=== PATIENT | male | born 1990 | race Caucasian/White ===

== ENCOUNTER → 2020-05-24 12:00 | Outpatient (CLI) | payer OTHER, SELFPAY ==
[2016-07-22 18:32] VITALS: BMI 26.4
== END ==
PROVIDERS: PCP Family Medicine; Visit Provider Family Medicine
DX: R05 Cough (principal)
CPT/HCPCS: 87635; U0003

== ENCOUNTER 2021-04-15 19:47 | Emergency (ER) | payer OTHER, SELFPAY ==
[2021-04-15 19:49] VITALS: BP 120/91; PULSE 76; RESP 16; TEMP 36.3; O2SAT 98; BMI 26.4
--- NOTE | 2021-04-15 20:27 | EX.ED.UPPERE ---
HPI History of Present Illness HPI Narrative: Patient presents with left shoulder injury that occurred today. Patient states he fell down some steps today. Patient states he felt like he dislocated his shoulder. Patient states he has done this many times in the past. Patient states his pain is worse with certain movements. Patient describes his pain as cramping. Patient states it is better at rest. Patient denies any paresthesias or weakness. Patient denies any head injury or loss of consciousness. Patient denies any other injuries. Chief Complaint: Upper Extremity Injury Informant: patient Occured/Mechanism Mechanism/Context: Yes fall Onset/Context/Timing Onset: Today Context: Sudden Onset Timing: Continuous Quality of Pain: - (Cramping) Location: Left shoulder Worsened by: Certain movements Relieved by: Rest Associated Symptoms Associated Symptoms: Negative for Parasthesia, Weakness and Loss of Funtion [facility] Medical History (Updated 04/15/21 @ 20:[address] Roberto Carlos Lopes DO) ADHD Home Medications dextroamphetamine-amphetamine [Adderall] 40 mg PO DAILY 04/15/21 [History Last Taken Unknown] Allergy/AdvReac Type Severity Reaction Status Date / Time No Known Allergies Allergy Verified 04/15/21 19:48 Surgical History (Updated 04/15/21 @ 20:[address] Roberto Carlos Lopes DO) History of repair of ACL Social History (Updated 04/15/21 @ 20:[address] Roberto Carlos Lopes DO) Smoking Status: Current every day smoker tobacco type: cigarettes Smoking packs per day: 0.5 Smoking cigarettes per day: 10.0 substance use type: marijuana ROS ROS ED Constitutional Constitutional ED: Denies chills or fever(s) Eyes Eyes: Denies blurry vision or change in vision ENT ENT ED: Denies rhinorrhea or sore throat Cardiovascular Cardiovascular: Denies chest pain or palpitations Respiratory/Chest Respiratory/Chest: Denies cough or dyspnea Gastrointestinal Gastrointestinal: Denies nausea or vomiting Genitourinary Genitourinary ED: Denies dysuria or hematuria Musculoskeletal Musculoskeletal: Denies back pain or neck pain Integumentary Denies abscess or rash Neurologic Neurologic: Denies headache(s) or weakness Allergic/Immunologic Allergic/Immunologic ED: Denies mouth swelling or urticaria EXAM Physical Exam Const Vital Signs: 04/15/21 19:49 Temperature 97.3 F L Temperature Source Temporal Pulse Rate 76 Respiratory Rate 16 Blood Pressure 120/91 H Blood Pressure Mean 100 Pulse Ox 98 Oxygen Delivery Method Room Air Positive well nourished and well developed General Appearance ED: well developed HEENT Reports moist mucous membranes Neck full ROM and supple Extremity Extremity Narrative: There is tenderness over the left shoulder, worse over the posterior aspect. There is no deformity noted. Range of motion was slightly limited in all motion secondary to pain. Sensation was intact to light touch in the radial, median, ulnar, and axillary areas. Radial pulses are equal bilaterally. Strength is 5/5 in the radial, median, and ulnar areas. Neuro oriented x3, CN's II-XII intact bilaterally, moves all extremities, no focal motor deficits and no sensory deficits noted Sensorium / Orientation: alert Psych mental status grossly normal MDM MDM MDM Narrative Medical decision making narrative: I discussed with the patient getting x-rays. He does not want any x-rays at this time. Patient states he thinks he needs an MRI of his shoulder due to frequent dislocations. Patient was advised that we cannot do MRIs of the shoulder from the emergency department. Patient was instructed to follow-up with his primary care physician in 5 to 7 days. Patient was also instructed to follow-up with his orthopedist in 5 to 7 days and they may be able to order the MRI as an outpatient. Patient was instructed use Tylenol as needed for pain. Patient was instructed to use ice. Patient was instructed to return if worse in any way. Patient understood and was agreeable with the plan. All questions were answered. Discharge Plan Triage Chief Complaint: Upper Extremity Injury ED Provider: Roberto Carlos Lopes Dx/Rx/DC Orders Clinical Impression: Left shoulder pain Instructions: ED Shoulder Sprain Prescriptions: No Action dextroamphetamine-amphetamine [Adderall] 20 mg Tablet 40 mg PO DAILY RF: 0 Primary Care Provider: Zafar Truong Referrals: Zafar Truong MD [Primary Care Provider] - 5-7 Days Disposition Disposition: Home, Self Care
== END 2021-04-15 20:51 | disposition home or self-care (01) ==
PROVIDERS: Emergency Provider Emergency Medicine; PCP Family Medicine
DX: M25.512 Pain in left shoulder (principal); F17.210 Nicotine dependence, cigarettes, uncomplicated
CPT/HCPCS: 99282

== ENCOUNTER → 2021-05-12 10:31 | Outpatient (CLI) | payer OTHER, SELFPAY ==
[2021-05-12 12:36] LABS: Absolute Neutrophil Count 3.4 X10^3/uL (2.0-7.7); Basophil# 0.07 X10^3/uL; Basophil% 0.8 % (0-1); Eosinophil# 0.07 X10^3/uL; Eosinophils% 0.8 % (0-5); Hematocrit 42.8 % (40-54); Hemoglobin 13.7 g/dL (13.0-16.5); Lymphocyte % 53.9 % (19-41); Mean Corpuscular Hgb 29.7 pg (27.0-32.0); Mean Corpuscular Volume 92.8 fL (80-94); Mean Platelet Vol. 9.5 fl (6.2-12.0); Monocyte# 0.43 X10^3/uL; NRBC Flagged by Analyzer 0 % (0-5); Neutrophil # 3.35 X10^3/uL (2.7-7.7); Neutrophil % 39.3 % (47-70); POSITIVE MORPHOLOGY YES; Platelet Count 238 K/mm3 (150-450); RBC Distribution Width CV 14.1 % (11.6-14.6); RBC Distribution Width SD 48.1 fl (35.1-43.9); Red Blood Count 4.61 M/mm3 (4.6-6.2); White Blood Count 8.5 K/mm3 (4.4-11.0)
[2021-05-12 12:37] LABS: Differential Indicated SCAN CRITERIA MET
[2021-05-12 12:57] LABS: ALB/GLOB Ratio 0.9 RATIO (0.9-2.4); AST(SGOT) 86 U/L (15-37); Alanine Aminotransfer ALT/SGPT 212 U/L (16-61); Albumin, Serum 3.7 g/dL (3.2-5.0); Alkaline Phosphatase 125 U/L (45-117); Anion Gap 3 (5-15); BUN 13 mg/dL (7-18); BUN/Creat Ratio 13.8 RATIO (10-20); Calcium,Total 9.1 mg/dL (8.5-10.1); Chloride 105 mmol/L (98-107); Cholesterol 125 mg/dL (200); Creatinine, Serum 0.94 mg/dL (0.70-1.30); EST Glomerular Filtration Rate 99 mL/min (>60); Est Glom Filt Rate - Afr Amer 119 mL/min (>60); Globulin 4.1 g/dL (2.2-4.2); Glucose 103 mg/dL (74-106); High Density Lipoprotein 25 mg/dL; Potassium 4.3 mmol/L (3.5-5.1); Protein, Total 7.8 g/dL (6.4-8.2); Sodium Level 137 mmol/L (136-145); Triglycerides 179 mg/dL; Very Low Density Lipoprotein 36 mg/dL (5-40)
[2021-05-12 13:17] LABS: Differential Comment SCANNED; Reactive Lymphocyte 1+
== END ==
PROVIDERS: PCP Family Medicine; Referring Provider Family Medicine; Visit Provider Family Medicine
DX: I80.3 Phlebitis and thrombophlebitis of lower extremities, unspecified (principal); Z13.220 Encounter for screening for lipoid disorders
CPT/HCPCS: 36415; 80053; 80061; 85025

== ENCOUNTER → 2021-05-12 13:30 | Outpatient (CLI) | payer OTHER, SELFPAY ==
--- NOTE | 2021-05-12 13:34 | VDLE_ITS ---
Reason For Study: pain RIGHT GSV is normal. CFV is compressible, spontaneous, phasic, competent and demonstrates normal augmentation. FV is compressible, spontaneous, phasic, competent and demonstrates normal augmentation. POP V is compressible, spontaneous, phasic, competent and demonstrates normal augmentation. T/P Trunk is compressible. PTV is compressible. RT PerV is compressible. ASV above the knee is dilated and noncompressible. Procedure This is a venous duplex using B-mode, color flow and spectral Doppler. Exam performed in department. The exam was abbreviated due to the COVID 19 protocol. The exam was diagnostic. A preliminary report was called and/or faxed to Dr. Meza's office. VL/Venous Duplex US, Unilateral Interpretation Summary Deep veins of the right lower extremity are patent and compressible segmentally . There is no evidence of right lower extremity deep vein thrombosis. Valvular competence jeremy ears intact within the proximal deep venous system on the right . The right great saphenous vein a ppears patent and compressible segmentally. Acute superficial thrombophlebitis is noted involving an accessory saphenous vein above the right knee. Ordering Physician: Roberto Carlos Meza Performed By: Luis Arellano RVT
== END ==
PROVIDERS: PCP Family Medicine; Referring Provider Family Medicine; Visit Provider Family Medicine
DX: M79.661 Pain in right lower leg (principal)
CPT/HCPCS: 93971

== ENCOUNTER 2022-12-22 17:15 | Emergency (ER) | payer OTHER, SELFPAY ==
[2022-12-22 17:16] VITALS: BP 120/86; PULSE 88; RESP 15; TEMP 36.1; O2SAT 100; BMI 26.4
--- NOTE | 2022-12-22 17:21 | CT_ITS ---
We are attempting to reach an attending provider to discuss findings. An addendum with communication details will be sent when the communication is complete. INDICATION: head trauma EXAMINATION: CT BRAIN - CT Head or Brain W/O Contrast Injection TECHNIQUE: Multiple axial images were obtained of the head without intravenous contrast. A radiation dose optimization technique was used for this scan. IV Contrast dosage and agent: None. RADIATION DOSAGE (If Supplied By Facility): CTDIvol = ( 44.99 ) mGy, DLP = ( 796.11 ) mGycm COMPARISON: No relevant prior examinations for comparison FINDINGS: HEMISPHERES: 1. The cerebral parenchyma, ventricular system, subarachnoid spaces have normal configuration and density. There is a normal gyral pattern. There is normal rosales/white differentiation. No midline shift.. 2. The hemispheric white matter has normal appearance. 3. There is pneumocephalus noted along the posterior cranial vault on the LEFT. No associated epidural or subdural hematoma identified. There is a subtle nondisplaced fracture involving the LEFT side of the occipital bone extending into the lambda and the LEFT mastoid process. 4. No intraparenchymal mass, hemorrhage, or acute territorial infarct. CEREBELLUM - BRAINSTEM: The cerebellum, brainstem, basilar and suprasellar cisterns have normal appearance. No Chiari malformation. PITUITARY: Infundibulum and pituitary have normal configuration. Midline structures appear normal. CSF SPACES: Appropriate for age. No hydrocephalus. Basal cisterns are patent. VESSELS: 1. No significant vascular calcifications in the cavernous carotid vessels. 2. No hyperdense vascular signs noted.. ORBITS AND PARANASAL SINUSES: 1. Normal appearance of the bony orbits. Normal appearance of the globes and retrobulbar soft tissues.. 2. Paranasal sinuses are clear, there is small amount of fluid potentially blood within the LEFT mastoid air cells. BONY ELEMENTS: Nondisplaced fracture involving the LEFT occipital lobe mastoid process of the LEFT temporal lobe, with mild diastases of the LEFT lamina. No other fractures noted.. SCALP AND SOFT TISSUES: LEFT posterior parietal and occipital scalp hematoma. OTHER: None ASPECTS Score for Acute Strokes: 10 CT/Brain/Head without Contrast IMPRESSION: 1. LEFT posterior parietal and occipital scalp hematoma/contusion. 2. Nondisplaced LEFT occipital and temporal fracture extending across lambda. Mild diastases of lambda. 3. There is mild pneumocephalus, likely arising from the LEFT mastoid air cells. No hematoma, no intraparenchymal or extra axial hematoma noted. 4. No intraparenchymal mass, hemorrhage, or acute territorial infarct. Consider evaluation with MRI for further clarification of occult intraparenchymal injury. Electronically Signed: Jose Peña MD at 17:47 EDT ,
--- NOTE | 2022-12-22 17:21 | CT_ITS ---
INDICATION: head trauma EXAMINATION: CT CERVICAL SPINE - CT Spine Cervical W/O Contrast Injection TECHNIQUE: Helically acquired images were obtained of the cervical spine. 2D reformatted images were reviewed. A radiation dose optimization technique was used for this scan. IV Contrast dosage and agent: None. COMPARISON: None. FINDINGS: VERTEBRAE: No fracture or traumatic subluxation. No discrete lytic or blastic abnormality. Normal alignment. Normal craniocervical junction and cervicothoracic junction. Normal appearance of the odontoid process. There are findings suspicious of occult LEFT mastoid/temporal bone fracture with small amount of soft tissue emphysema projecting in the region of the mastoid tip and the stylomastoid foramen. DISCS and SPINAL CANAL: Disc space narrowing at C4-5, marginal osteophyte formation at multiple levels. No acute disc herniation evident. No critical stenosis. NECK SOFT TISSUES: No prevertebral soft tissue swelling. There is no cervical adenopathy. LUNG APICES: Clear. CT/Spine Cervical without Contras IMPRESSION: 1. No evidence of acute cervical spinal fracture or spondylolisthesis. No acutely acquired canal stenosis noted. 2. Findings suspicious of occult LEFT mastoid/temporal bone fracture. Electronically Signed: Jose Peña MD at 17:51 EDT ,
--- NOTE | 2022-12-22 17:22 | EX.ED.GENINJ ---
HPI History of Present Illness Chief Complaint: Trauma Detail of Chief Complaint: Head trauma with scalp laceration Informant: patient and EMS Onset/Context/Timing Onset: Today Mechanism/Context: Blunt Injury Current Severity: Moderate Maximum Severity: Moderate Associated Symptoms Associated Symptoms: Positive for Loss of consciousness; Negative for Parasthesias, Weakness, Loss of function, Inability to ambulate or Amnesia Narrative Narrative: 32-year-old male no seen past medical or surgical history. [place] was in the [place] brush and branches. Believes but is unsure at he was hit in the head with a falling branch. He was knocked unconscious. When he walked in the house he had a scalp laceration was confused. called paramedics. Paramedics state that he has been confused since they picked him up. Tetanus Immunization: Unknown Prior similar symptoms: No Recent Illness/Hospitalization: No PFSH PFSH Medical History ADHD Home Medications dextroamphetamine-amphetamine 20 mg tablet (Adderall) 40 mg PO DAILY 04/15/21 [History Last Taken Unknown] Allergy/AdvReac Type Severity Reaction Status Date / Time No Known Allergies Allergy Verified 04/15/21 19:48 Surgical History History of repair of ACL Social History Smoking Status: Current every day smoker tobacco type: cigarettes substance use type: marijuana ROS ROS ED ROS Narrative Denies recent illness. Headache. Review of Systems ROS Unobtainable: Denies due to encephalopathy Constitutional Constitutional ED: Denies chills or fever(s) Eyes Eyes: Denies blurry vision ENT ENT ED: Denies ear pain Cardiovascular Cardiovascular: Denies chest pain Respiratory/Chest Respiratory/Chest: Denies cough Gastrointestinal Gastrointestinal: Denies abdominal pain or constipation Genitourinary Genitourinary ED: Denies dysuria or hematuria Musculoskeletal Musculoskeletal: Denies arthralgias or back pain Integumentary Denies abscess or Abrasions Neurologic Neurologic: Reports headache(s) Psychiatric Psychiatric: Denies anxiety Endocrine Endocrinology: Denies cold intolerance Hematologic/Lymphatic Hematologic/Lymphatic: Denies easy bleeding Allergic/Immunologic Allergic/Immunologic ED: Denies mouth swelling or tongue swelling EXAM Physical Exam Narrative Exam Narrative: 32-year-old male brought in by paramedics. Vital signs stable afebrile. He is got dried blood on his face and a head dressing. C-collar in place. He is sitting upright in bed. He is awake alert. He is answering questions. He does act concussed. He repeats the same questions over and keeps stating I need to get out of here. H EENT exam pupils round reactive light extra motions are intact. No facial trauma. Dentition intact. He has a posterior scalp laceration there is a dressing on at this time. I will evaluate it more indefinitely later. C-collar in place. Trachea midline. Back nontender spine thoracic and lumbar nontender. Lungs are clear. Heart regular rhythm rate about 90 no murmur. Chest wall and ribs nontender. Abdomen soft nontender. Pelvic girdle intact. Moving all 4 extremities. 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 Dorsi plantarflexion. Neurologically acting concussed but awake and alert. Answering questions and following commands. GCS of 14. Const Vital Signs: 12/22/22 17:16 12/22/22 17:20 Temperature 97 F L Temperature Source Temporal Pulse Rate 88 Respiratory Rate 15 Respiratory Effort Normal Blood Pressure 120/86 H Blood Pressure Mean 97 Pulse Ox 100 Oxygen Delivery Method Room Air Room Air Positive well nourished and well developed; Negative for obese, cachectic, contractures or unkempt General Appearance ED: well developed; Negative for unkempt, cachectic, contractures or NAD Nutritional Appearance: Negative for cachectic or obese HEENT HEENT Narrative: Scalp laceration tenderness. Dried blood on his scalp. trauma and tenderness; Negative for atraumatic Eyes PERRL and EOMs intact bilaterally General Eye ED: Negative for other Neck Neck Narrative: C-collar in place. Not removed at this time. Chest Wall inspection of chest normal and palpation of chest normal Breast/Axilla Inspection: Negative for other Resp normal respiratory effort and clear to auscultation bilaterally Effort and Inspection: Negative for pain with movement Auscultation: Negative for rales, rhonchi, wheezes, diminished lung sounds or other Cardio regular rhythm, S1 normal heart sound, S2 normal heart sound and no murmurs Jugular Venous Distention: Negative for other Palpation: Negative for palpable S3 Rate: Negative for regular rate Rhythm: Negative for abnormal rhythm GI normal to inspection, nondistended, normoactive bowel sounds, non-tender, non-distended and no masses Inspection: Negative for abdominal distention Auscultation: normoactive bowel sounds Palpation: soft; Negative for tender or guarding Back/Spine normal to inspection and no thoracic nor lumbar tenderness General Back: Negative for CVA tenderness Thoracic Spine / Upper Back: Negative for thoracic spinal tenderness Lumbar Spine / Lower Back: Negative for straight leg raise negative bilaterally Extremity normal to inspection and full ROM General Extremety ED: Negative for deformity, edema or tenderness General Extremity: Negative for deformity or edema Neuro oriented x3, CN's II-XII intact bilaterally, moves all extremities, no focal motor deficits and no sensory deficits noted Neuro Narrative: Patient thinking cost. Mildly confused. GCS of 14. Normal motor strength. Hutto Coma Scale: document GCS findings Spontaneous Obeys Commands Confused 14 Sensorium / Orientation: alert, oriented to person, oriented to place and oriented to time; Negative for orientation impaired, lethargic or stuporous Motor Exam: strength 5/5 throughout Psych mental status grossly normal and thought process normal Appearance: Negative for unkempt Attitude: No agitated Mood & Affect: Negative for depressed, anxious or tearful Skin no rashes or lesions noted Skin Narrative: Posterior scalp laceration. Rashes: No rashes noted Trauma: Negative for abrasion MDM MDM MDM Narrative Medical decision making narrative: 32-year-old male with a scalp laceration and head injury may or may not have been from a falling branch. There was no one that witnessed the injury. CT of his head and neck will be obtained. We will suture repair his scalp for stable it. Tetanus will be updated. He does not have any other obvious injuries at all think he needs any blood work or other imaging at this time. Patient with 6 some morphine for Zofran for his headache. Review and patient is resting comfortably at 6 PM. I discussed with his father his CAT scan results. I am also obtaining a x-ray of his right shoulder and humerus due to bruising and discomfort there. [facility] have [facility] trauma [facility], on page for transfer they can accept him. History & Record Review Discussion w/independent historian: EMS personnel and Patient Radiography Diagnostic Testing: Clinical Impression(s) from Imaging Studies Brain CT 12/22/22 17:21 IMPRESSION: 1. LEFT posterior parietal and occipital scalp hematoma/contusion. 2. Nondisplaced LEFT occipital and temporal fracture extending across lambda. Mild diastases of lambda. 3. There is mild pneumocephalus, likely arising from the LEFT mastoid air cells. No hematoma, no intraparenchymal or extra axial hematoma noted. 4. No intraparenchymal mass, hemorrhage, or acute territorial infarct. Consider evaluation with MRI for further clarification of occult intraparenchymal injury. Electronically Signed: Jose Peña MD at 17:47 EDT , Cervical Spine CT 12/22/22 17:21 IMPRESSION: 1. No evidence of acute cervical spinal fracture or spondylolisthesis. No acutely acquired canal stenosis noted. 2. Findings suspicious of occult LEFT mastoid/temporal bone fracture. Electronically Signed: Jose Peña MD at 17:51 EDT , I reviewed the CT of his brain and C-spine. I do not see any acute intracranial bleed nor any acute cervical fracture. Awaiting radiologist formal interpretation. Remain in the c-collar until that returns. You do see the laceration of the posterior scalp in the subcu tissue. There is also pneumocephalus and a occipital and temporal fracture of the skull. This is nondisplaced. Read by the radiologist and reviewed by me. Critical Care Time Critical Care Time: Yes Critical care time (excluding procedures): 30-74 minutes, Including time spent:, Discussing w/Patient &/or Family/Multisensor Intelligence Officer, Discussing w/Consultants, Arranging Admission or Transfer, Performing Direct Patient Care at Bedside and - (35 min) Discharge Plan Triage Chief Complaint: Trauma Other Complaint: Laceration ED Provider: Miguel Biggs Dx/Rx/DC Orders Clinical Impression: Head injury, Skull fracture, Traumatic pneumocephalus Prescriptions: No Action dextroamphetamine-amphetamine [Adderall] 20 mg Tablet 40 mg PO DAILY Primary Care Provider: Roberto Carlos Meza Referrals: Roberto Carlos Meza MD [Primary Care Provider] - Disposition Disposition: Acute Care Hospital
[2022-12-22] MEDS: Diphth,Pertuss(Acell),Tet Vac 0.5 ML Vial IM (17:36)
[2022-12-22] MEDS: morphine 8 MG/ML Syringe 6 MG IV (17:52)
[2022-12-22] MEDS: Ondansetron 4 MG/2 ML Vial IV (17:52)
[2022-12-22 18:19] VITALS: BP 112/74; PULSE 79; RESP 16; O2SAT 100
[2022-12-22] MEDS: Cefazolin 1 GM/50 ML BAG IV (18:23)
[2022-12-22 18:33] VITALS: BP 118/76; PULSE 87; RESP 18; O2SAT 99
--- NOTE | 2022-12-22 18:35 | RAD_ITS ---
INDICATION: trauma EXAMINATION/TECHNIQUE: X-RAY - RIGHT XR Humerus Min 2 Views 3 VIEWS COMPARISON: None. FINDINGS: SOFT TISSUES: No soft tissue swelling or gas. No radiopaque foreign body. BONES/JOINTS: No acute fracture or subluxation.. Normal alignment. Preservation of the joint space.. No sclerotic or destructive changes observed. RAD/Humerus min 2 Views IMPRESSION: No evidence fracture malalignment or focal bony or joint space abnormality involving the RIGHT humerus. Electronically Signed: Jose Peña MD at 19:01 EDT ,
--- NOTE | 2022-12-22 18:35 | RAD_ITS ---
INDICATION: trauma EXAMINATION/TECHNIQUE: X-RAY - RIGHT XR Shoulder Min 2 Views 2 VIEWS COMPARISON: None. FINDINGS: SOFT TISSUES: No soft tissue swelling or gas. No radiopaque foreign body. BONES/JOINTS: No acute fracture or subluxation.. Normal alignment. Preservation of the joint space.. No sclerotic or destructive changes observed. Normal appearance of the AC joint, clavicle, scapula and RIGHT rib cage. RAD/Shoulder min 2 Views IMPRESSION: No evidence fracture malalignment or focal bony or joint space abnormality involving the RIGHT shoulder. Electronically Signed: Jose Peña MD at 19:00 EDT ,
[2022-12-22] MEDS: fentaNYL 100 MCG/2 ML Ampul 50 MCG IV (18:36)
== END 2022-12-22 18:42 | disposition short-term general hospital (02) ==
PROVIDERS: Emergency Provider Emergency Medicine; PCP Family Medicine; Visit Provider Emergency Medicine
DX: S02.119A Unspecified fracture of occiput, initial encounter for closed fracture (principal); S02.19XA Other fracture of base of skull, initial encounter for closed fracture; S01.01XA Laceration without foreign body of scalp, initial encounter; G93.89 Other specified disorders of brain; W20.8XXA Other cause of strike by thrown, projected or falling object, initial encounter; F90.9 Attention-deficit hyperactivity disorder, unspecified type; F17.210 Nicotine dependence, cigarettes, uncomplicated; Z79.899 Other long term (current) drug therapy; Z23 Encounter for immunization
CPT/HCPCS: 70450; 72125; 73030; 73060; 90715; 96365; 96375; 99285; J7050; A4216; J2405